=== PATIENT | female | born 1965 | race Caucasian/White ===

== ENCOUNTER 2024-09-19 14:58 | Emergency (ER) | payer OTHER ==
[~2024-09-19] VITALS: Ht 172.7 cm; Wt 81.6 kg
[2024-09-19 15:19] VITALS: TEMP 98.5
[2024-09-19] MEDS ORDERED: KETOROLAC TROMETHAMINE 15 MG/ML VIAL ONE (15:41)
[2024-09-19] MEDS: KETOROLAC TROMETHAMINE 15 MG/ML VIAL IV ONE (15:44)
[2024-09-19 15:52] LABS: APPEARANCE,URINE SLIGHTLY CLOUDY (CLEAR); BASOPHILS % (AUTO) 0.3 % (0.0-2.0); BILIRUBIN,URINE NEGATIVE (NEGATIVE); BLOOD, URINE NEGATIVE Ery/uL (NEGATIVE); COLOR,URINE YELLOW (YELLOW); EOSINOPHILS # (AUTO) 0.1 K/uL (0.0-0.7); EOSINOPHILS % (AUTO) 0.6 % (0.0-6.0); HEMATOCRIT 38 % (33-45); HEMOGLOBIN 12.6 g/dL (11.5-14.8); KETONES,URINE NEGATIVE (NEGATIVE); LEUKOCYTE ESTERASE ,URINE 2+ (NEGATIVE); LYMPHOCYTES # (AUTO) 0.4 K/uL (0.8-4.8); LYMPHOCYTES % (AUTO) 2.9 % (20.0-44.0); MEAN CORPUSCULAR HEMOGLOBIN 30 PG (26.0-33.0); MEAN CORPUSCULAR HGB CONC 33 g/dl (31.0-36.0); MEAN CORPUSCULAR VOLUME 90 fL (82-100); MONOCYTES # (AUTO) 0.8 K/uL (0.1-1.30); MONOCYTES % (AUTO) 6.2 % (2.0-12.0); NEUTROPHILS # (AUTO) 11.5 K/uL (1.8-8.9); NITRITE, URINE NEGATIVE (NEGATIVE); PLATELET COUNT (AUTO) 355 K/uL (150-450); PROTEIN,URINE TRACE mg/dl (NEGATIVE); RED BLOOD CELL COUNT(AUTO) 4.23 MIL/uL (4.0-5.2); RED CELL DISTRIBUTION WIDTH 17.6 % (11.5-15.0); UGLUCOSE NEGATIVE (NEGATIVE); UROBILINOGEN,URINE 0.2 EU/dL (0.2); WHITE BLOOD COUNT (AUTO) 12.8 K/uL (4.3-11.0)
[2024-09-19 15:55] LABS: WBC,URINE 51-80 /HPF (0-3)
[2024-09-19 15:57] LABS: ADD URINE CULTURE YES; BACTERIA,URINE Few /HPF (None Seen); RBC,URINE 0-2 /HPF (0-2); SQUAMOUS EPITHELIAL CELL,UR Rare /HPF (None Seen)
[2024-09-19 15:58] LABS: CALCIUM, SERUM 8.9 mg/dL (8.5-10.1); CREATININE 0.8 mg/dL (0.6-1.3)
[2024-09-19] MEDS: IV NS 0.9% 1,000 ML BAG IV ONE (16:00)
[2024-09-19 16:03] LABS: ALBUMIN 2.8 g/dL (3.4-5.0); BILIRUBIN,DIRECT 0.1 mg/dL (0.0-0.2); BILIRUBIN,TOTAL 0.4 mg/dL (0.2-1.0); TOTAL PROTEIN, SERUM 7.3 g/dL (6.4-8.2)
[2024-09-19] MEDS ORDERED: CIPR-262 PO (16:27)
[2024-09-19] MEDS ORDERED: TAMS-12 PO (16:27)
[2024-09-19] MEDS ORDERED: TAMSULOSIN 0.4 MG CAP.SR.24H ONE (16:30)
[2024-09-19] MEDS ORDERED: CIPROFLOXACIN HCL 500 MG TABLET ONE (16:30)
[2024-09-19] MEDS: KETOROLAC TROMETHAMINE INJ 30 MG/ML VIAL IV ONE (16:30)
[2024-09-19] MEDS: TAMSULOSIN 0.4 MG CAP.SR.24H PO ONE (16:30)
[2024-09-19] MEDS: CIPROFLOXACIN HCL 500 MG TABLET PO ONE (16:30)
[2024-09-19] MEDS ORDERED: KETOROLAC TROMETHAMINE INJ 30 MG/ML VIAL ONE (16:30)
[2024-09-19 16:57] VITALS: BP 120/80; O2SAT 99
== END 2024-09-19 16:52 | disposition home or self-care (01) ==
LOC: ER 14:58
DX: N20.0 Calculus of kidney (principal); M19.90 Unspecified osteoarthritis, unspecified site
CPT/HCPCS: 99285; 74176; 96374; 96361; 96376; 85025; 80048; 83690; 80076; 81001; 36415; J1885 ×2; J7030; 87086-TC